=== PATIENT | female | born 1980 | race Caucasian/White ===

== ENCOUNTER → 2024-02-29 | Outpatient (CLI) | payer OTHER, BC, SELFPAY ==
[2024-02-29 07:56] LABS: Hemoglobin 14.8 g/dL (12.0-15.0); Mean Corp Hgb Conc 33.6 g/dL (32-36); Mean Corpuscular Hgb 29.3 pg (27.0-32.0); Mean Corpuscular Volume 87.1 fL (81-99); Mean Platelet Vol. 9.2 fl (6.2-12.0); Neutrophil % 73.7 % (47-70); Platelet Count 337 K/mm3 (150-450); RBC Distribution Width CV 14.1 % (11.6-14.6); RBC Distribution Width SD 45.1 fl (35.1-43.9); Red Blood Count 5.05 M/mm3 (4.2-5.4); White Blood Count 8.2 K/mm3 (4.4-11.0)
[2024-02-29 07:57] LABS: Absolute Lymphocyte Count 1.37 X10^3/uL (0.83-4.51); Absolute Neutrophil Count 6.1 X10^3/uL (2.0-7.7); Basophil# 0.08 X10^3/uL; Eosinophil# 0.23 X10^3/uL; Eosinophils% 2.8 % (0-5); Lymphocyte # 1.37 X10^3/ul (0.83-4.51); Lymphocyte % 16.7 % (19-41); Monocyte# 0.44 X10^3/uL; Monocyte% 5.4 % (0-10)
[2024-02-29 08:39] LABS: ALB/GLOB Ratio 1.1 RATIO (0.9-2.4); AST(SGOT) 24 U/L (15-37); Alanine Aminotransfer ALT/SGPT 21 U/L (13-56); Albumin, Serum 3.9 g/dL (3.2-5.0); Alkaline Phosphatase 94 U/L (45-117); Anion Gap 8 (5-15); BUN 10 mg/dL (7-18); BUN/Creat Ratio 8.6 RATIO (10-20); Calcium,Total 9.1 mg/dL (8.5-10.1); Chloride 110 mmol/L (98-107); Cholesterol 155 mg/dL (200); Creatinine, Serum 1.16 mg/dL (0.55-1.02); EST Glomerular Filtration Rate 54 mL/min (>60); Est Glom Filt Rate - Afr Amer 65 mL/min (>60); Globulin 3.6 g/dL (2.2-4.2); Glucose 99 mg/dL (74-106); High Density Lipoprotein 58 mg/dL; Potassium 4.2 mmol/L (3.5-5.1); Protein, Total 7.5 g/dL (6.4-8.2); Sodium Level 141 mmol/L (136-145); Triglycerides 93 mg/dL; Very Low Density Lipoprotein 19 mg/dL (5-40)
== END | disposition home or self-care (01) ==
PROVIDERS: PCP Internal Medicine; Referring Provider Internal Medicine; Visit Provider Internal Medicine
DX: E03.9 Hypothyroidism, unspecified (principal); K21.9 Gastro-esophageal reflux disease without esophagitis; G43.909 Migraine, unspecified, not intractable, without status migrainosus; E78.2 Mixed hyperlipidemia
CPT/HCPCS: 36415; 80053; 80061; 84443; 85025

== ENCOUNTER → 2024-03-01 | Outpatient (CLI) | payer OTHER, BC, SELFPAY ==
--- NOTE | 2024-03-01 14:12 | BI_ITS ---
MAMMOGRAPHY - BILATERAL SCREENING REASON FOR EXAM: Female, 43 years old. Routine annual screening examination. PERTINENT HISTORY: Non-contributory. History of bilateral breast reduction and lift surgery. TECHNIQUE: Digital bilateral breast ami (3D mammographic acquisition) in the CC and MLO projections. 2-D mediolateral oblique (MLO) and craniocaudad (CC) views of both breasts were obtained. CAD: Full Field Digital Mammography with Computer Added Detection was performed. COMPARISON: Comparison is made with prior outside examination dated February 24, 2023. FINDINGS: Breast Composition: The breasts are heterogeneously dense, which may obscure small masses. There are no dominant masses or suspicious calcifications. Stable small fat-containing axillary lymph nodes. No other significant abnormalities are identified. There has been no significant change since the prior study. BI/SCRN MAMM (CAD)W/AMI BILAT IMPRESSION: Stable bilateral screening mammogram. Yearly follow-up mammogram recommended. (A) ASSESSMENT CATEGORY: BIRADS Category 2: Benign. A letter regarding these results will be sent to the patient by the facility within 30 days. Approximately 10% of breast cancers are not detected by mammography. A normal mammogram should not delay biopsy of a clinically suspicious abnormality. [id number] Electronically Signed: Sukhdeep Hernandez MD at 12:09 EST ,
== END | disposition home or self-care (01) ==
LOC: OPBI 14:12
PROVIDERS: PCP Internal Medicine; Referring Provider Internal Medicine; Visit Provider Internal Medicine
DX: Z12.31 Encounter for screening mammogram for malignant neoplasm of breast (principal)
CPT/HCPCS: 77063; 77067

== ENCOUNTER → 2024-03-15 | Outpatient (CLI) | payer OTHER, BC, SELFPAY ==
[2024-03-15 09:47] LABS: Bacteria 0 SEEN /hpf (None Seen); Mucous, Urine 0 SEEN /hpf (<or=2+); Red Blood Cells-Urine 0 SEEN /hpf (0-5)
[2024-03-15 10:12] LABS: Color, Urine Yellow (Yellow); Glucose, Dipstick Normal (Normal); Ketone-Dipstick Negative (Negative); Leukocyte Esterase-Dipstick Negative /ul (Negative); Nitrite-Dipstick Negative (Negative); Occult Blood-Urine Negative /ul (Negative); Protein-Dipstick Negative (Negative); Specific Gravity, Urine 1.005 (1.002-1.030); Urine Bilirubin Dipstick Negative (Negative); Urine Clarity Clear (Clear); Urine Urobilinogen Normal (Normal)
[2024-03-15 10:18] LABS: Squamous Epithelial Cells - UA 0-5 SEEN /hpf (5-10); White Blood Cells 0-5 SEEN /hpf (0-5)
== END | disposition home or self-care (01) ==
LOC: LAB 09:44
PROVIDERS: PCP Internal Medicine; Referring Provider Internal Medicine; Visit Provider Internal Medicine
DX: R35.0 Frequency of micturition (principal)
CPT/HCPCS: 81001

== ENCOUNTER → 2024-03-15 | Outpatient (CLI) | payer OTHER, BC, SELFPAY | END | disposition home or self-care (01) | LOC: SL 09:58 | PROVIDERS: PCP Internal Medicine; Referring Provider Internal Medicine; Visit Provider Internal Medicine | DX: G47.10 Hypersomnia, unspecified (principal) | CPT/HCPCS: 95806 ==

== ENCOUNTER 2024-04-11 08:47 | Day surgery (SDC) | payer OTHER, BC, SELFPAY ==
--- NOTE | 2024-04-08 08:53 | PAT.ANESEVAL ---
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 When Was Last Pacemaker Check QUESTION #4 FULL TEXT: You/Your Family Experience fever (hyperthermia) with Anesthesia Last Oral Intake Last Oral intake: Last Oral Intake NPO since Meds taken in AM with sips of water? 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 - pouncing machine operator: PONV - pouncing machine operator Female Yes 04/07/24 10:50 HX of Motion Sickness No 04/07/24 10:50 HX of N/V After Surgery No 04/07/24 10:50 Non-Smoker No 04/07/24 10:50 Duration of Surgery greater No 04/07/24 10:50 than 60 minutes Number of Risk Factors 1 04/07/24 10:50 PONV Score Low Risk 04/07/24 10:50 Height & Weight Height & Weight: Anesthesia: Height & Weight Height 5 ft 1 in 03/01/24 13:39 Respiratory Assessment Respiratory Assessment - pouncing machine operator: Respiratory Tract Infection Hx - pouncing machine operator Hx Respiratory Tract Infection No 04/07/24 10:50 STOP Sleep Apnea STOP Sleep Apnea - pouncing machine operator: STOP Sleep Apnea - pouncing machine operator Hx Hypertension No 04/07/24 10:50 Hx Sleep Apnea No 04/07/24 10:50 CPAP BIPAP Do you snore loudly (louder No 04/07/24 10:50 than talking or can be heard Do you often feel tired/ No 04/07/24 10:50 fatigued/ sleepy during daytime? Has anyone observed you stop No 04/07/24 10:50 breathing during sleep? STOP Results Negative 04/07/24 10:50 QUESTION #5 FULL TEXT : Do you snore loudly (louder than talking or can be heard through closed doors)? 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 Specify any problems Hx of Preganancy in last 3 No 04/07/24 10:50 Months Nurse Filling Out Transfusion [facility] 04/07/24 10:50 & Questions: Date: 04/07/24 04/07/24 10:50 Time: 10:58 04/07/24 10:50 Patient unable to answer at this time (ie. confused, unrespo /Reproduction History /Reproductive History - pouncing machine operator: /Reproductive Hx- pouncing machine operator Hx Now No 04/07/24 10:50 Gestational Age (in weeks): EDC: Hx Hx Para Hx Section SAB PFSH Medical History Wears glasses Alcohol use Bruising History of renal disease Fatty liver Easy bruising Migraine headache Dietary restriction Gastric reflux Former smoker History of stress test History of echocardiogram Cardiology follow-up encounter PCOS (polycystic ovarian syndrome) Fibromyalgia Chronic migraine Thyroid disease GERD (gastroesophageal reflux disease) High cholesterol Home Medications ?Medication ?Instructions ?Recorded ?Last Taken ?Type rosuvastatin 5 mg tablet 5 mg PO QDAY 02/17/24 Unknown History topiramate 100 mg tablet (Topamax) 100 mg PO BID 02/17/24 Unknown History duloxetine 60 mg capsule,delayed 60 mg PO QDAY #90 caps 02/24/24 Unknown Rx release Hydrocortisone 2.5%/lidocaine 5% #30 ea 03/01/24 Unknown Rx suppository (cmpd) levothyroxine 25 mcg tablet 25 mcg PO QDAY #96 tabs 04/07/24 Unknown Rx (Synthroid) omeprazole 20 mg capsule,delayed 20 mg PO QDAY #90 caps 04/07/24 Unknown Rx release Allergy/AdvReac Type Severity Reaction Status Date / Time No Known Allergies Allergy Verified 04/07/24 10:48 Family History Grandmother Rheumatoid arthritis Kidney disease Liver disease Father Rheumatoid arthritis High cholesterol Mother Colon polyps, Onset Age: 65 pre cancerous Grandmother Cancer, Onset Age: 68 pancreas Surgical History History of surgical procedure History of surgical procedure History of cholecystectomy H/O: hysterectomy H/O laparoscopy H/O bilateral breast reduction surgery History of delivery Hx of release of tendon H/O tooth extraction History of adenoidectomy Hx of tonsillectomy Social History household members: spouse and children housing: house 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 status: 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: Former smoker quit date: 04/27/13 Tobacco: How many years used: 2 alcohol intake: current alcohol intake frequency: holidays/special occasions only Alcohol type: wine substance use type: does not use what type of physical activity do you participate in: none frequency: 1-2 times per week seatbelt use: sometimes do you feel safe at home: Yes additional social history: going through a divorce - a little hard Audit: Pertinent Findings Pertinent Findings Stress test pertinent findings: neg 01/2022 Consult pertinent findings: cardio 02/08/24 htn hyperlipidemia stable Recommendation Anesthesia Recommendation Anesthesia recommendation: OPTIMIZED for anesthesia
[2024-04-11] VITALS (8 sets, daily range): BP systolic 90–126; BP diastolic 69–84; PULSE 68–88; RESP 16; TEMP 36.9; O2SAT 95–98; BMI 37.5
--- NOTE | 2024-04-11 09:11 | HP.PCM_ITS ---
HPI - General General Date of Service: 04/11/24 [facility] Narrative ELYSE LAWSON, is a 43 F who presents for EGD and colonoscopy due to reflux and history of colon polyps. Patient states her reflux is controlled with the omeprazole 20 mg p.o. daily. Patient does state that increasing her fiber and the Colace has helped with the constipation and the hemorrhoid. office visit 03/01/24 [facility] HPI: 43-year-old female presents for EGD and colonoscopy due to reflux as well as constipation/history of colon polyps. Patient has been on omeprazole 20 mg p.o. daily does state that she has no symptoms of reflux on the medication her normal symptoms were burning up her esophagus as well as some epigastric pain. Patient states recently she has lost about 20 pounds due to increased activity at work. Patient did have a scope when she was 36 states that she had polyps at that time was told come back in 5 years. Patient's mom has had multiple polyps and patient states they were some over a centimeter as well which puts her at increased risk. Patient has bowel movements only once or twice a week states she drinks plenty of water unsure the exact amount of fiber she gets but does eat fruits and vegetables. Patient does occasionally take laxatives due to constipation. [facility] Medical History Wears glasses Alcohol use Bruising History of renal disease Fatty liver Easy bruising Migraine headache Dietary restriction Gastric reflux Former smoker History of stress test History of echocardiogram Cardiology follow-up encounter PCOS (polycystic ovarian syndrome) Fibromyalgia Chronic migraine Thyroid disease GERD (gastroesophageal reflux disease) High cholesterol Home Medications ?Medication ?Instructions ?Recorded ?Last Taken ?Type rosuvastatin 5 mg tablet 5 mg PO QDAY 02/17/24 Unknown History topiramate 100 mg tablet (Topamax) 100 mg PO BID 02/17/24 Unknown History duloxetine 60 mg capsule,delayed 60 mg PO QDAY #90 caps 02/24/24 Unknown Rx release Hydrocortisone 2.5%/lidocaine 5% #30 ea 03/01/24 Unknown Rx suppository (cmpd) levothyroxine 25 mcg tablet 25 mcg PO QDAY #96 tabs 04/07/24 04/11/24 06:30 Rx (Synthroid) omeprazole 20 mg capsule,delayed 20 mg PO QDAY #90 caps 04/07/24 Unknown Rx release Allergy/AdvReac Type Severity Reaction Status Date / Time No Known Allergies Allergy Verified 04/11/24 08:59 Family History Grandmother Rheumatoid arthritis Kidney disease Liver disease Father Rheumatoid arthritis High cholesterol Mother Colon polyps, Onset Age: 65 pre cancerous Grandmother Cancer, Onset Age: 68 pancreas Surgical History History of surgical procedure History of surgical procedure History of cholecystectomy H/O: hysterectomy H/O laparoscopy H/O bilateral breast reduction surgery History of delivery Hx of release of tendon H/O tooth extraction History of adenoidectomy Hx of tonsillectomy Social History household members: spouse and children housing: house 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 status: 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: Former smoker quit date: 04/27/13 Tobacco: How many years used: 2 alcohol intake: current alcohol intake frequency: holidays/special occasions only Alcohol type: wine substance use type: does not use what type of physical activity do you participate in: none frequency: 1-2 times per week seatbelt use: sometimes do you feel safe at home: Yes additional social history: going through a divorce - a little hard Past Medical/Surgical History Planned Operation Planned Operative Procedure(s): EGD,COLONOSCOPY Previous Hospitalizations/Surgeries HX Hospitalizations: No Any Problems With Anesthesia: No You/Your Family Experience Fever (Hyperthermia) With Anes: No Cholinesterase deficiency: No Cardiovascular Hx Hypertension: No Respiratory Hx Sleep Apnea: No Hx Respiratory Tract Infection/Cold (presently): No Do You Snore Loudly (louder than talking or can be heard): No Do You Often Feel Tired/ Fatigued/ Sleepy Dring Daytime?: No Has Anyone Observed You Stop Breathing During Sleep?: No Result (for STOP score): Negative Smoking Status: Former smoker Neurological Does patient have nerve stimulator: No Reproduction : No Miscellaneous Recent Exposure to Contagious Disease: No Allergies No Known Allergies Allergy (Verified 04/11/24 08:59) Discharge Is Pt Admitted From a Care Home, or a Fpc: No Who Could Help: SISTER After D/C, Where Do you Plan to Go: Return Home Vital Signs Vital Signs Vital Signs: 04/11/24 09:06 04/11/24 09:06 Temperature 98.5 F Temperature Source Temporal Pulse Rate 88 Respiratory Rate 16 Respiratory Pattern Normal Blood Pressure 126/84 H Blood Pressure Mean 98 Blood Pressure Source Monitor Blood Pressure Position Semi-Fowlers Blood Pressure Location Left Arm Pulse Ox 98 Oxygen Delivery Method Room Air Weight Weight: 198 lb 6.656 oz Body Mass Index (BMI) 37.5 Physical Exam Const alert, oriented x3 and no apparent distress HEENT normocephalic and head/scalp atraumatic Resp normal respiratory effort Cardio regular rate GI soft to palpation and non-tender; Negative for non-distended Palpation: Negative for guarding Extremity no clubbing, cyanosis or edema Skin no rashes or lesions noted Neuro CN's II-XII intact bilaterally Psych mental status grossly normal Assessment & Plan Assessment/Plan (1) GERD (gastroesophageal reflux disease): (2) Hx of colonic polyps: (3) FH: colonic polyps: Surgery Risks - Colonoscopy I discussed with the patient the risks of the procedure: Yes Risks Include but are not Limited To: Plan for EGD and colonoscopy risks include but are not limited to: Bleeding, perforation requiring further surgery, inability to complete colonoscopy requiring barium enema.
--- NOTE | 2024-04-11 09:31 | PCM.PRE.AN2 ---
ASA Classification* ASA Classification ASA Classification: 2 Assessment & Plan Anesthesia* Anesthesia Assessment Anesthesia Assessment: Discussed sedation and/or anesthesia options, risks, benefits, and alternatives with patient/parents/legal guardian/POA. Questions invited. The patient/parents/legal guardian/POA seems to understand and agrees to proceed with anesthesia plan. Reviewed the physical assessment, medical history, allergy history and patient home medications list prior to surgery/procedure/anesthetic and documented any changes. Performed airway and anesthesia risk assessments. Anesthesia Type Anesthesia Type: MAC Anesthesia Focused Assessment* Temperature: 98.5 F Pulse Rate: 88 Blood Pressure: 126/84 Respiratory Rate: 16 Pulse Ox: 98 Airway Assessment Mouth opens: >3 cm Mallampati Score: II Focused Labs Anesthesia Preop lab: CBC WBC 8.2 K/mm3 (4.4-11.0) 02/29/24 06:47 RBC 5.05 M/mm3 (4.2-5.4) 02/29/24 06:47 Hgb 14.8 g/dL (12.0-15.0) 02/29/24 06:47 Hct 44.0 % (37-47) 02/29/24 06:47 Plt Count 337 K/mm3 (150-450) 02/29/24 06:47 CHEMISTRY Potassium 4.2 mmol/L (3.5-5.1) 02/29/24 06:47 Sodium 141 mmol/L (136-145) 02/29/24 06:47 Phosphorus 3.3 mg/dL (2.5-4.9) 02/29/24 06:47 BUN 10 mg/dL (7-18) 02/29/24 06:47 Creatinine 1.16 mg/dL (0.55-1.02) H 02/29/24 06:47 Glucose 99 mg/dL (74-106) 02/29/24 06:47 TSH 1.490 uIU/mL (0.358-3.740) 02/29/24 06:47 COAG Urine Test Negative Negative 05/17/14 16:40 Pre-Assessment Diagnosis/Proposed Procedure Planned Operative Procedure(s): EGD,COLONOSCOPY Anesthesia History 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 When Was Last Pacemaker Check QUESTION #4 FULL TEXT: You/Your Family Experience fever (hyperthermia) with Anesthesia Last Oral Intake Last Oral intake: Last Oral Intake NPO since Meds taken in AM with sips of Yes 04/11/24 09:06 water? 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 Female Yes 04/07/24 10:50 HX of Motion Sickness No 04/07/24 10:50 HX of N/V After Surgery No 04/07/24 10:50 Non-Smoker No 04/07/24 10:50 Duration of Surgery greater No 04/07/24 10:50 than 60 minutes Number of Risk Factors 1 04/07/24 10:50 PONV Score Low Risk 04/07/24 10:50 Height & Weight Height & Weight: Anesthesia: Height & Weight Height 5 ft 1 in 04/11/24 09:06 Weight: 90 kg 04/11/24 09:06 Body Mass Index (BMI) 37.5 04/11/24 09:06 Respiratory Assessment Respiratory Assessment - solid fiber paster operator: Respiratory Tract Infection Hx - solid fiber paster operator Hx Respiratory Tract Infection No 04/11/24 09:12 STOP Sleep Apnea STOP Sleep Apnea - solid fiber paster operator: STOP Sleep Apnea - solid fiber paster operator Hx Hypertension No 04/11/24 09:12 Hx Sleep Apnea No 04/11/24 09:12 CPAP BIPAP Do you snore loudly (louder No 04/11/24 09:12 than talking or can be heard Do you often feel tired/ No 04/11/24 09:12 fatigued/ sleepy during daytime? Has anyone observed you stop No 04/11/24 09:12 breathing during sleep? STOP Results Negative 04/11/24 09:12 QUESTION #5 FULL TEXT : Do you snore loudly (louder than talking or can be heard through closed doors)? 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 Specify any problems Hx of Preganancy in last 3 No 04/07/24 10:50 Months Nurse Filling Out Transfusion [facility] 04/07/24 10:50 & Questions: Date: 04/07/24 04/07/24 10:50 Time: 10:58 04/07/24 10:50 Patient unable to answer at this time (ie. 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: /Reproductive Hx- solid fiber paster operator Hx Now No 04/11/24 09:12 Gestational Age (in weeks): EDC: Hx Hx Para Hx Section SAB PFSH Medical History Wears glasses Alcohol use Bruising History of renal disease Fatty liver Easy bruising Migraine headache Dietary restriction Gastric reflux Former smoker History of stress test History of echocardiogram Cardiology follow-up encounter PCOS (polycystic ovarian syndrome) Fibromyalgia Chronic migraine Thyroid disease GERD (gastroesophageal reflux disease) High cholesterol Home Medications ?Medication ?Instructions ?Recorded ?Last Taken ?Type rosuvastatin 5 mg tablet 5 mg PO QDAY 02/17/24 Unknown History topiramate 100 mg tablet (Topamax) 100 mg PO BID 02/17/24 Unknown History duloxetine 60 mg capsule,delayed 60 mg PO QDAY #90 caps 02/24/24 Unknown Rx release Hydrocortisone 2.5%/lidocaine 5% #30 ea 03/01/24 Unknown Rx suppository (cmpd) levothyroxine 25 mcg tablet 25 mcg PO QDAY #96 tabs 04/07/24 04/11/24 06:30 Rx (Synthroid) omeprazole 20 mg capsule,delayed 20 mg PO QDAY #90 caps 04/07/24 Unknown Rx release Allergy/AdvReac Type Severity Reaction Status Date / Time No Known Allergies Allergy Verified 04/11/24 08:59 Family History Grandmother Rheumatoid arthritis Kidney disease Liver disease Father Rheumatoid arthritis High cholesterol Mother Colon polyps, Onset Age: 65 pre cancerous Grandmother Cancer, Onset Age: 68 pancreas Surgical History History of surgical procedure History of surgical procedure History of cholecystectomy H/O: hysterectomy H/O laparoscopy H/O bilateral breast reduction surgery History of delivery Hx of release of tendon H/O tooth extraction History of adenoidectomy Hx of tonsillectomy Social History household members: spouse and children housing: house 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
--- NOTE | 2024-04-11 10:00 | COLBX_PTH ---
PATIENT: ELYSE LAWSON LOC: EN U#:[id number] AGE/SX: 43/F ROOM: RE04/11/[address]: Dr. Miri Madden MD : 1980 BED: DIS: 04/11/2024 SPEC #: [id number] RECD: 04/11/24 12:45 STATUS: KIMBERLEY REMk #: [id number] DENEEN: 04/11/24 10:[address]: Miri Madden DEPT: SURGICAL PATHOLOGY RECD BY: Carla Gracia ENTERED: 04/11/24 13:45 SP TYPE: COLON BX OTHR DR: Dr. Erendira Russ MD Tissues: A - Gastric mucous membrane B - Descending colon Procedures: Surgery Specimen Level IV HEADER OPERATION: Colonoscopy, EGD with biopsy PRE-OP DIAGNOSIS: GERD, history of colonic polyps, family history of colonic polyps TISSUE SUBMITTED: A- Antrum biopsy, B- Descending polyp biopsy MICROSCOPIC DIAGNOSIS A. Gastric antrum, biopsy: Mild chronic inflammation. See comment. B. Descending colon polyp, biopsy: Fragments of hyperplastic polyp. AM. 04/12/2024 COMMENT A. The results of immunohistochemistry for Helicobacter pylori will be reported separately ([id number]). MICROSCOPIC DESCRIPTION Slides are reviewed. GROSS DESCRIPTION A. Received in fixative is one container labeled with the patient's name and designated Antrum biopsy. The specimen consists of one irregular fragment of light gifford soft tissue that measures 0.4 x 0.3 x 0.1 cm. The specimen is totally submitted in one cassette. B. Received in fixative is one container labeled with the patient's name and designated Descending polyp biopsy. The specimen consists of two irregular fragments of light gifford soft tissue that in aggregate measure 0.6 x 0.3 x 0.1 cm. The specimen is totally submitted in one cassette. SABRINA. 04/11/2024 TC:5 CPT:41836x1
--- NOTE | 2024-04-11 10:00 | IMM_PTH ---
PATIENT: ELYSE LAWSON LOC: EN U#:[id number] AGE/SX: 43/F ROOM: RE04/11/[address]: Dr. Miri Madden MD : 1980 BED: DIS: 04/11/2024 SPEC #: [id number] RECD: 04/11/24 14:39 STATUS: KIMBERLEY REQ #: [id number] DENEEN: 04/11/24 10:[address]: Miri Madden DEPT: IMMUNOHISTOCHEMISTRY RECD BY: Jaswinder Brand ENTERED: 04/11/24 14:39 SP TYPE: IMMUNO OTHR DR: Dr. Erendira Russ MD Tissues: A - Gastric mucous membrane Procedures: H Pylori (initial) PHYSICIAN & INSTITUTION [address] [address] SPECIMEN INFORMATION: Tissue Source: A- Antrum biopsy Clinical Info: GERD, history of colonic polyps, family history of colonic polyps Specimen Number: [id number] CPT code: 82420 METHODOLOGY: Deparaffinized sections of prefer/formalin-fixed tissue or PAP/DQ stained slides are incubated with monoclonal/polyclonal antibodies/oligonucleotide probes. Localization is made via biotin free immunoperoxidase method. Appropriate controls are performed and reacted as expected. Results on target cell population are indicated in the following table: RESULTS: ANTIBODY / CLONE RESULT Block A H Pylori (polyclonal) negative These tests were developed and their performance characteristics determined by [facility]. They may not have been cleared or approved by the [place]. Food and Drug Administration. The FDA has determined that such clearance or approval is not necessary. The above immunohistochemical/dualISH markers are ordered and reviewed by the Pathologist. INTERPRETATION: A. Antrum, biopsy: Negative for Helicobacter pylori organisms. AM. 04/12/2024
--- NOTE | 2024-04-11 10:59 | OP.CCLET_ITS ---
04/11/2024 Erendira Russ Md Re : Upper GI endoscopy procedure for Jada Thibodaeux Dear Jeb This procedure was performed on Thursday, April 11, 2024. My impressions and recommendations are as follows: Impressions : - Z-line regular, 40 cm from the incisors. - Normal examined duodenum. - Erythematous mucosa in the antrum. Biopsied. Recommendations : - Await pathology results. - Discharge patient to home. - Resume previous diet. - Continue present medications. - Use Prilosec (omeprazole) 40 mg PO daily. My findings are described in the full procedure note, which is enclosed. If I can be of further assistance, please feel free to contact me at Doctor phone number(s): , Work: . Sincerely, MD Miri Berumen MD 04/11/2024 10:58:42 AM This report has been signed electronically.
--- NOTE | 2024-04-11 10:59 | OP.EGD_ITS ---
Patient Name: Jada Thibodeaux Procedure Date: 04/11/2024 10:20 AM Date of : 1980 Age: 43 Procedure: Upper GI endoscopy Indications: Heartburn Providers: Miri Madden MD Referring MD: Miri Madden MD Medicines: Monitored Anesthesia Care Patient Profile: This is a 43 year old female. Complications: No immediate complications. Procedure: Pre-Anesthesia Assessment: - Prior to the procedure, a History and Physical was performed, and patient medications and allergies were reviewed. The patient's tolerance of previous anesthesia was also reviewed. The risks and benefits of the procedure and the sedation options and risks were discussed with the patient. All questions were answered, and informed consent was obtained. Prior Anticoagulants: The patient has taken no anticoagulant or antiplatelet agents. ASA Grade Assessment: Per anesthesia. After reviewing the risks and benefits, the patient was deemed in satisfactory condition to undergo the procedure. After obtaining informed consent, the endoscope was passed under direct vision. Throughout the procedure, the patient's blood pressure, pulse, and oxygen saturations were monitored continuously. The Colonoscope was introduced through the mouth, and advanced to the second part of duodenum. The upper GI endoscopy was accomplished without difficulty. The patient tolerated the procedure well. Scope In: 10:26:57 AM Scope Out: 10:31:14 AM Total Procedure Duration Time 0 hours 4 minutes 17 seconds Findings: The Z-line was regular and was found 40 cm from the incisors. The examined duodenum was normal. The cardia and gastric fundus were normal on retroflexion. Striped moderately erythematous mucosa without bleeding was found in the gastric antrum. Biopsies were taken with a cold forceps for histology. Biopsies were taken with a cold forceps for Helicobacter pylori cultures. Impression: - Z-line regular, 40 cm from the incisors. - Normal examined duodenum. - Erythematous mucosa in the antrum. Biopsied. Recommendation: - Await pathology results. - Discharge patient to home. - Resume previous diet. - Continue present medications. - Use Prilosec (omeprazole) 40 mg PO daily. Procedure Code(s): --- Professional --- 30819, Esophagogastroduodenoscopy, flexible, transoral; with biopsy, single or multiple Diagnosis Code(s): --- Professional --- K31.89, Other diseases of stomach and duodenum R12, Heartburn CPT copyright 2021 [employer]. All rights reserved. The codes documented in this report are preliminary and upon medical biller/coder review may be revised to meet current compliance requirements. MD Miri Berumen MD 04/11/2024 10:58:42 AM This report has been signed electronically. Number of Addenda: 0 Note Initiated On: 04/11/2024 10:20 AM
--- NOTE | 2024-04-11 11:02 | PCM.POST.ANE ---
Anesthesia: Postop Eval I Current Vital Signs Temperature: 98.5 F Pulse Rate: 68 Blood Pressure: 90/71 Respiratory Rate: 16 Pulse Ox: 95 Oxygen Delivery Method: Room Air Assessment Airway patent: Yes Spontaneous unlabored respirations: Yes Mental status: Asleep nausea: No Vomiting: No Anesthesia Complication: No Fluid Hydration Crystalloid volume administer (ml): 70 Total IV fluid infused: 70 Progress Note Anesthesia document: Postop Eval 1 completed: Yes
--- NOTE | 2024-04-11 11:04 | OP.COLON_ITS ---
Patient Name: Jada Thibodeaux Procedure Date: 04/11/2024 10:31 AM Date of : 1980 Age: 43 Procedure: Colonoscopy Indications: High risk colon cancer surveillance: Personal history of colonic polyps, FH: mom >1cm polyps Providers: Miri Madden MD Referring MD: Miri Madden MD Medicines: Monitored Anesthesia Care Patient Profile: This is a 43 year old female. Last Colonoscopy: several years ago. Complications: No immediate complications. Procedure: Pre-Anesthesia Assessment: - Prior to the procedure, a History and Physical was performed, and patient medications and allergies were reviewed. The patient's tolerance of previous anesthesia was also reviewed. The risks and benefits of the procedure and the sedation options and risks were discussed with the patient. All questions were answered, and informed consent was obtained. Prior Anticoagulants: The patient has taken no anticoagulant or antiplatelet agents. ASA Grade Assessment: Per anesthesia. After reviewing the risks and benefits, the patient was deemed in satisfactory condition to undergo the procedure. After I obtained informed consent, the scope was passed under direct vision. Throughout the procedure, the patient's blood pressure, pulse, and oxygen saturations were monitored continuously. The Colonoscope was introduced through the anus and advanced to the cecum, identified by the appendiceal orifice, ileocecal valve and palpation. The colonoscopy was performed without difficulty. The patient tolerated the procedure well. The quality of the bowel preparation was good. Scope In: 10:32:40 AM Scope Withdrawal Time 0 hours 10 minutes 49 seconds Scope Out: 10:53:01 AM Total Procedure Duration Time 0 hours 20 minutes 21 seconds Findings: Hemorrhoids were found on perianal exam. Non-bleeding internal hemorrhoids were found. The hemorrhoids were Grade II (internal hemorrhoids that prolapse but reduce spontaneously). A less than 5 mm polyp was found in the descending colon. The polyp was sessile. The polyp was removed with a cold biopsy forceps. Resection and retrieval were complete. The exam was otherwise without abnormality. Impression: - Hemorrhoids found on perianal exam. - Non-bleeding internal hemorrhoids. - One less than 5 mm polyp in the descending colon, removed with a cold biopsy forceps. Resected and retrieved. - The examination was otherwise normal. Recommendation: - Discharge patient to home. - Resume previous diet. - Continue present medications. - Await pathology results. - Repeat colonoscopy in 3 - 5 years for surveillance based on pathology results. Procedure Code(s): --- Professional --- 19929, PT, Colonoscopy, flexible; with biopsy, single or multiple Diagnosis Code(s): --- Professional --- Z86.010, Personal history of colonic polyps K64.1, Second degree hemorrhoids D12.4, Benign neoplasm of descending colon CPT copyright 2021 [employer]. All rights reserved. The codes documented in this report are preliminary and upon plate filler review may be revised to meet current compliance requirements. MD Miri Berumen MD 04/11/2024 11:04:17 AM This report has been signed electronically. Number of Addenda: 0 Note Initiated On: 04/11/2024 10:31 AM
--- NOTE | 2024-04-11 11:05 | OP.CCLET_ITS ---
04/11/2024 Erendira Russ Md Re : Colonoscopy procedure for Jada Thibodeaux Dear Jeb This procedure was performed on Thursday, April 11, 2024. My impressions and recommendations are as follows: Impressions : - Hemorrhoids found on perianal exam. - Non-bleeding internal hemorrhoids. - One less than 5 mm polyp in the descending colon, removed with a cold biopsy forceps. Resected and retrieved. - The examination was otherwise normal. Recommendations : - Discharge patient to home. - Resume previous diet. - Continue present medications. - Await pathology results. - Repeat colonoscopy in 3 - 5 years for surveillance based on pathology results. My findings are described in the full procedure note, which is enclosed. If I can be of further assistance, please feel free to contact me at Doctor phone number(s): , Work: . Sincerely, MD Miri Berumen MD 04/11/2024 11:04:17 AM This report has been signed electronically.
--- NOTE | 2024-04-11 13:25 | PCM.POSTANE2 ---
Anesthesia Postop Eval I Sum Postop Eval Completion status Anesthesia document: Postop Eval 1 completed: Yes Anesthesia Postop Eval I Summary Anesthesia Postop Eval I Summary: Anesthesia Postop Eval I: Assessment Summary Airway patent Yes 04/11/24 11:02 [email or web address] Spontaneous unlabored Yes 04/11/24 11:02 [email or web address] respirations Mental status Asleep 04/11/24 11:02 [email or web address] nausea No 04/11/24 11:02 [email or web address] Vomiting No 04/11/24 11:02 [email or web address] Anesthesia Postop Eval I: Fluid Summary Crystalloid volume administer 70 04/11/24 11:02 [email or web address] (ml) Colloids volume administered ( ml) Blood Product volume administered (ml) Total IV fluid infused 70 04/11/24 11:02 [email or web address] Anesthesia Postop Eval I: Summary Notes Anesthesia Complication No 04/11/24 11:02 [email or web address] Anesthesia Complication Comment: Post-operative progress note Anesthesia: Postop Eval II Evaluation Mental status: Awake Pain Level: 0 nausea: No Vomiting: No
== END 2024-04-11 11:38 | disposition home or self-care (01) ==
LOC: EN 08:50 → AC 08:52
PROVIDERS: PCP Internal Medicine; Referring Provider Surgery; Visit Provider Surgery
PROC: 0DJD8ZZ Inspection of Lower Intestinal Tract, Via Natural or Artificial Opening Endoscopic (ICD-10-PCS; CPT 45378; principal; 2024-04-11 09:55)
DX: Z12.11 Encounter for screening for malignant neoplasm of colon (principal); K21.9 Gastro-esophageal reflux disease without esophagitis; Z79.890 Hormone replacement therapy; E78.00 Pure hypercholesterolemia, unspecified; K64.1 Second degree hemorrhoids; Z87.891 Personal history of nicotine dependence; Z86.0100 Personal history of colon polyps, unspecified; Z79.899 Other long term (current) drug therapy; K64.4 Residual hemorrhoidal skin tags; K29.50 Unspecified chronic gastritis without bleeding; K63.5 Polyp of colon; E07.9 Disorder of thyroid, unspecified
CPT/HCPCS: 43239; 45380; 88305; 88342; J2405

== ENCOUNTER → 2024-12-28 | Outpatient (CLI) | payer OTHER, SELFPAY | END | disposition home or self-care (01) | LOC: LABSPEC 12:24 | PROVIDERS: PCP Internal Medicine; Referring Provider Dermatology; Visit Provider Dermatology | DX: L02.01 Cutaneous abscess of face (principal) | CPT/HCPCS: 87070; 87077; 87186; 87205 ==

== ENCOUNTER → 2025-04-06 | Outpatient (CLI) | payer OTHER, SELFPAY ==
[2025-04-06 10:53] LABS: Hematocrit 41.9 % (37-47); Hemoglobin 14.0 g/dL (12.0-15.0); Immature Granulocytes Count 0.030 X10^3/uL (0.0-0.0); Mean Corp Hgb Conc 33.4 g/dL (32-36); Mean Corpuscular Volume 87.5 fL (81-99); Mean Platelet Vol. 9.5 fl (6.2-12.0); NRBC Flagged by Analyzer 0 % (0-5); Platelet Count 319 K/mm3 (150-450); RBC Distribution Width CV 13.4 % (11.6-14.6); RBC Distribution Width SD 43.3 fl (35.1-43.9); Red Blood Count 4.79 M/mm3 (4.2-5.4); White Blood Count 8.2 K/mm3 (4.4-11.0)
[2025-04-06 11:36] LABS: AST(SGOT) 19 U/L (<=31); Alanine Aminotransfer ALT/SGPT 19 U/L (<=34); Albumin, Serum 4.4 g/dL (3.5-5.0); Alkaline Phosphatase 88 U/L (35-104); Anion Gap 11 (5-15); BUN 14 mg/dL (4-19); BUN/Creat Ratio 14.0 RATIO (10-20); Calcium,Total 9.4 mg/dL (7.6-11.0); Carbon Dioxide 22.4 mmol/L (21.0-32.0); Chloride 106 mmol/L (98-108); Cholesterol 180 mg/dL (<=200); Globulin 3.3 g/dL (2.2-4.2); Glucose 96 mg/dL (70-99); Low Density Lipoprotein Calc. 113 mg/dL; Potassium 3.9 mmol/L (3.3-5.1); T3 Total - Triiodothyronine 1.10 ng/mL (0.80-2.00); Triglycerides 127 mg/dL; Very Low Density Lipoprotein 25 mg/dL (5-40); Vitamin B12 403 pg/mL (180-914); Vitamin D,25 Hydroxy 33.6 ng/mL (30-100); cholesterol:hdl ratio screen 4.04
[2025-04-07 14:09] LABS: Anti-Chromatin <0.2 AI (0.0-0.9); Anti-Jo <0.2 AI (0.0-0.9); Anti-dsDNA Ab 1 IU/mL (0-9); SJOGREN'S Anti-SS-A test < 0.2 AI (0.0-0.9); SJOGREN'S Anti-SS-B test < 0.2 AI (0.0-0.9)
== END | disposition home or self-care (01) ==
LOC: MTLAB 08:45
PROVIDERS: PCP Internal Medicine; Referring Provider Internal Medicine; Visit Provider Internal Medicine
DX: G43.909 Migraine, unspecified, not intractable, without status migrainosus (principal); M79.7 Fibromyalgia; R53.83 Other fatigue; E78.2 Mixed hyperlipidemia; E03.9 Hypothyroidism, unspecified
CPT/HCPCS: 36415; 80053; 80061; 82306; 82607; 84439; 84443; 84480; 85025; 86200; 86225; 86235; 86431